=== PATIENT | male | born 1955 | race Caucasian/White ===

== ENCOUNTER 2017-09-19 10:21 | Observation (INO) | payer OTHER ==
[2017-09-19 10:56] LABS: Absolute Lymphocytes (CBC) 0.8 K/uL (0.7-4.9); Absolute Monocytes 0.8 K/uL (0.1-1.3); Absolute Neutrophil 4.1 K/uL (1.8-8.0); Basophils % 0.7 % (0-1.3); Eosinophils % 4.7 % (0-4.4); Hematocrit 43.7 % (39.6-49.0); Lymphocytes % 13.3 % (15.3-44.8); MCH 30.8 pg (27.0-35.0); MCV 93.6 fL (80-100); MPV 9.6 fL (7.6-11.3); Monocytes % 12.8 % (3.3-12.3); RBC Red Blood Cell Count 4.67 M/uL (4.33-5.43)
[2017-09-19] MEDS ORDERED: PROMETHAZINE 25 MG/ML VIAL ONE (10:56)
[2017-09-19] MEDS ORDERED: MEPERIDINE HCL 25 MG/0.5 ML ONE ×2 (10:56→11:55)
[2017-09-19] MEDS ORDERED: NA CHLORIDE 0.9% 1,000 ML ONE (10:56)
[2017-09-19 11:05] LABS: Bicarbonate 26 mEq/L (21-31); Glucose Level 196 mg/dL (65-120); Lipase 20 U/L (22-51); Potassium 3.9 mEq/L (3.6-5.0); Sodium Level 135 mEq/L (135-145)
[2017-09-19 11:11] LABS: ALT/SGPT 17 IU/L (10-60); AST/SGOT 26 IU/L (10-42); Albumin 4.1 g/dL (3.2-5.5); Alkaline Phosphatase 90 IU/L (42-121); BUN Blood Urea Nitrogen 21 mg/dL (6-20); Bilirubin Direct 0.2 mg/dL (0-0.2); Bilirubin Total 0.8 mg/dL (0.3-1.2); Protein, Total 7.7 g/dL (6.0-8.3)
--- NOTE | 2017-09-19 11:45 | RAD REPORT ---
EXAM DESCRIPTION: CT - Abdomen Pelvis W Contrast - 09/19/2017 11:33 am CLINICAL HISTORY: Abdominal pain/generalized abdominal pain for 1 week with diarrhea COMPARISON: April 2017 TECHNIQUE: Computed axial tomography of the abdomen pelvis was obtained. 100 cc Isovue-300 was admin istered intravenously. Oral contrast was not requested which limits evaluation of bowel. All CT scans are performed using dose optimization technique as appropriate and may include automated exposure control or mA/KV adjustment according to patient size. FINDINGS: The liver, spleen, pancreas, adrenal and kidneys appear unremarkable. The wall of the entire colon appears mildly thickened. The wall of the the terminal ileum is mildly t hickened. Small inguinal hernias contain fat Postsurgical changes involve the lumbar spine IMPRESSION: Mild pancolitis/enteritis
[2017-09-19] MEDS ORDERED: METRONIDAZOLE 500mg IVPB 500 MG/100 ML BAG IV ONE (11:56)
[2017-09-19] MEDS ORDERED: CIPROFLOXACIN 400mg IV 400 MG/200 ML BAG IV ONE (11:56)
--- NOTE | 2017-09-19 12:02 | ER ---
Nurse's Notes [facility] Name: Helder Zambrano Age: 62 yrs Sex: Male : 1955 Arrival Date: 09/19/2017 Time: 10:23 Bed 20 Private MD: Wallace Garcia E Diagnosis: Pancolitis Presentation: 09/19 10:29 Presenting complaint: Patient states: Diffuse abdominal pain 01/19 and diarrhea x 1 hb week. Transition of care: patient was not received from another setting of care. Onset of symptoms was September 12, 2017. Risk Assessment: Do you want to hurt yourself or someone else? Patient reports no desire to harm self or others. Initial Sepsis Screen: Does the patient meet any 2 criteria? No. Patient's initial sepsis screen is negative. Does the patient have a suspected source of infection? No. Patient's initial sepsis screen is negative. Care prior to arrival: Medication(s) given: Immodium at 0800 today. 10:29 Method Of Arrival: Ambulatory hb 10:29 Acuity: ALDEN 3 hb Historical: - Allergies: 10:35 No Known Allergies; hb - Home Meds: 10:35 ferrous sulfate 325 mg (65 mg iron) Oral TbEC [Active]; alprazolam 1 mg Oral TbDL 1 tab hb 3 times per day [Active]; atorvastatin 40 mg oral tab 1 tab nightly [Active]; losartan 50 mg oral tab 1 tab once daily [Active]; gemfibrozil 600 mg Oral tab 1 tab 2 times per day [Active]; omeprazole 40 mg Oral cpDR 1 cap once daily [Active]; - PMHx: 10:35 Anemia; Back pain; Hypertension; hb - PSHx: 10:35 Back; Neck; Carpal Tunnel Repair; Shoulder - Left; Appendectomy; hb - Immunization history:: Adult Immunizations up to date. - Social history:: Smoking status: Patient uses tobacco products, smokes one pack cigarettes per day. - Ebola Screening: : No symptoms or risks identified at this time. Screenin:08 Abuse screen: Denies threats or abuse. Nutritional screening: No deficits noted. em Tuberculosis screening: No symptoms or risk factors identified. Fall Risk None identified. Assessment: 10:55 General: Appears in no apparent distress. uncomfortable, Behavior is calm, cooperative. em Pain: Complains of pain in abdomen Pain currently is 10 out of 10 on a pain scale. Quality of pain is described as sharp, Pain began 1 week. Neuro: Level of Consciousness is awake, alert, obeys commands, Oriented to person, place, time, situation, Reports dizziness, Denies headache. Cardiovascular: Denies chest pain, Capillary refill < 3 seconds Patient's skin is warm and dry. Respiratory: Airway is patent Respiratory effort is even, unlabored, Respiratory pattern is regular, symmetrical. GI: Abdomen is round non-distended, Stools are reported to be diarrhea. Last BM was September 19, 2017. Bowel sounds present X 4 quads. Abd is soft X 4 quads Abdomen is tender to palpation X 4 quads. Reports diarrhea, nausea, Patient currently denies vomiting. : No signs and/or symptoms were reported regarding the genitourinary system. EENT: No signs and/or symptoms were reported regarding the EENT system. Derm: Skin is intact, Skin is pink, warm \\T\\ dry. Musculoskeletal: Range of motion: intact in all extremities. 11:00 Reassessment: Patient appears in no apparent distress at this time. I agree with above iw assessment by Nikko Rachel LVN. 11:44 Reassessment: Patient appears in no apparent distress at this time. Patient and/or em family updated on plan of care and expected duration. Pain level reassessed. Patient is alert, oriented x 3, equal unlabored respirations, skin warm/dry/pink. c/o pain, reports pain medication only worked for "15-20 minutes," MARCOS Banegas notified, new orders received. 12:10 Reassessment: Patient appears in no apparent distress at this time. Dr. Griffith at em bedside discussing POC. 12:30 Reassessment: Patient appears in no apparent distress at this time. Patient and/or em family updated on plan of care and expected duration. Pain level reassessed. awaiting room assignment. 13:39 Reassessment: Patient appears in no apparent distress at this time. Patient and/or em family updated on plan of care and expected duration. Pain level reassessed. Patient is alert, oriented x 3, equal unlabored respirations, skin warm/dry/pink. Patient denies pain at this time. Patient states symptoms have improved. Vital Signs: 10:31 BP 107 / 72; Pulse 94; Resp 16; Temp 98.5; Pulse Ox 100% on R/A; Weight 72.57 kg; hb Height 5 ft. 8 in. (172.72 cm); Pain 10/10; 11:44 BP 119 / 73; Pulse 87; Resp 16; Pulse Ox 98% on R/A; Pain 10/10; em 12:30 BP 123 / 79; Pulse 86; Resp 18; Pulse Ox 98% on R/A; em 13:40 BP 112 / 77; Pulse 92; Resp 18; Pulse Ox 100% on R/A; Pain 7/10; em 10:31 Body Mass Index 24.33 (72.57 kg, 172.72 cm) hb ED Course: 10:23 Patient arrived in ED. rg4 10:23 Wallace Garcia MD is Private Physician. rg4 10:31 Triage completed. hb 10:31 Arm band placed on left wrist. hb 10:36 Bassam Schultz PA is PHCP. jr8 10:36 Kristofer Byrne MD is Attending Physician. jr8 10:50 Nikko Rachel LVN is Primary Nurse. em 10:50 Basic Metabolic Panel Sent. ag 10:50 CBC with Diff Sent. ag 10:50 Creatinine for Radiology Sent. ag 10:50 Hepatic Function Sent. ag 10:50 Lipase Sent. ag 10:51 Inserted saline lock: 20 gauge in right antecubital area, using aseptic technique. ag Blood collected. 10:55 Basic Metabolic Panel Sent. ag 10:55 CBC with Diff Sent. ag 10:55 Creatinine for Radiology Sent. ag 10:55 Hepatic Function Sent. ag 10:55 Lipase Sent. ag 10:56 Initial lab(s) drawn, by co, sent to lab. ag 11:09 Patient has correct armband on for positive identification. Placed in gown. Bed in low em position. Call light in reach. Side rails up X2. Adult w/ patient. 11:29 CT completed. Patient moved to CT via stretcher. Patient moved back from CT. cw1 11:34 CT Abd/Pelvis - W/Contrast In Process Unspecified. EDMS 12:02 Magno Griffith DO is Hospitalizing Provider. jr8 13:46 No provider procedures requiring assistance completed. Patient admitted, IV remains in em place. Administered Medications: 11:02 Drug: NS 0.9% 1000 ml Route: IV; Rate: 100 ml/hr; Site: right antecubital; em 14:01 Follow up: IV Status: Infusion continued upon admission iw 11:03 Drug: Phenergan 12.5 mg Route: IVP; Site: right antecubital; iw 11:49 Follow up: Response: No adverse reaction; Nausea is decreased em 11:04 Drug: Demerol 25 mg Route: IVP; Site: right antecubital; iw 11:49 Follow up: Response: No adverse reaction em 12:08 Drug: Cipro 400 mg Volume: 200 ml; Route: IVPB; Infused Over: 60 mins; Site: right em antecubital; 13:38 Follow up: Response: No adverse reaction; IV Status: Completed infusion; IV Intake: em 200ml 12:08 Drug: Flagyl 500 mg Volume: 100 ml; Route: IVPB; Rate: 200 ml/hr; Infused Over: 30 em mins; Site: right antecubital; 13:38 Follow up: IV Status: Completed infusion; IV Intake: 200ml em 12:09 Drug: Demerol 25 mg Route: IVP; Site: right antecubital; em 13:37 Follow up: Response: No adverse reaction; Pain is decreased em Intake: 13:38 IV: 200ml; Total: 200ml. em 13:38 IV: 200ml; Total: 400ml. em Outcome: 12:02 Decision to Hospitalize by Provider. shirley 13:46 Admitted to Med/surg accompanied by lila, via wheelchair, room 204, with chart, Report em called to RHEA Wilks 13:46 Condition: good 13:46 Instructed on the need for admit, Demonstrated understanding of instructions. 14:00 Patient left the ED. Signatures: Dispatcher [employer] EDMS Nikko Rachel, OTOLARYNGOLOGY TEACHER OTOLARYNGOLOGY TEACHER em Radha Hall RN RN iw Woodley, Crystal cw1 Bassam Schultz PA PA jr8 aKthryn Dobson Heather, RN RN hb Garcia, Rubi rg4
--- NOTE | 2017-09-19 12:03 | EDPHYS ---
Physician Documentation [facility] Name: Helder Zambrano Age: 62 yrs Sex: Male : 1955 Arrival Date: 09/19/2017 Time: 10:23 Bed 20 Private MD: Wallace Garcia E ED Physician Kristofer Byrne HPI: 09/19 11:08 This 62 yrs old Male presents to ER via Ambulatory with complaints of jr8 Abdominal Pain. 11:08 The patient presents with abdominal pain that is diffuse. Onset: The symptoms/episode jr8 began/occurred acutely, 1 week(s) ago. The symptoms do not radiate. Associated signs and symptoms: Pertinent positives: diarrhea, nausea, Pertinent negatives: blood in stools, dysuria, fever, vomiting. The symptoms are described as crampy, stabbing. Modifying factors: The symptoms are alleviated by nothing, the symptoms are aggravated by food. Severity of pain: At its worst the pain was moderate in the emergency department the pain is unchanged. The patient has not experienced similar symptoms in the past. The patient has not recently seen a physician. Historical: - Allergies: 10:35 No Known Allergies; hb - Home Meds: 10:35 ferrous sulfate 325 mg (65 mg iron) Oral TbEC [Active]; alprazolam 1 mg Oral TbDL 1 tab hb 3 times per day [Active]; atorvastatin 40 mg oral tab 1 tab nightly [Active]; losartan 50 mg oral tab 1 tab once daily [Active]; gemfibrozil 600 mg Oral tab 1 tab 2 times per day [Active]; omeprazole 40 mg Oral cpDR 1 cap once daily [Active]; - PMHx: 10:35 Anemia; Back pain; Hypertension; hb - PSHx: 10:35 Back; Neck; Carpal Tunnel Repair; Shoulder - Left; Appendectomy; hb - Immunization history:: Adult Immunizations up to date. - Social history:: Smoking status: Patient uses tobacco products, smokes one pack cigarettes per day. - Ebola Screening: : No symptoms or risks identified at this time. ROS: 11:08 Eyes: Negative for injury, pain, redness, and discharge, ENT: Negative for injury, jr8 pain, and discharge, Neck: Negative for injury, pain, and swelling, Cardiovascular: Negative for chest pain, palpitations, and edema, Respiratory: Negative for shortness of breath, cough, wheezing, and pleuritic chest pain, Back: Negative for injury and pain, MS/Extremity: Negative for injury and deformity, Skin: Negative for injury, rash, and discoloration, Neuro: Negative for headache, weakness, numbness, tingling, and seizure. 11:08 Abdomen/GI: Positive for abdominal pain, nausea, diarrhea, abdominal cramps, Negative for vomiting, hematemesis, black/tarry stool, rectal pain, rectal bleeding, bowel incontinence, flatulence. Exam: 11:08 ENT: Nares patent. No nasal discharge, no septal abnormalities noted. Tympanic jr8 membranes are normal and external auditory canals are clear. Oropharynx with no redness, swelling, or masses, exudates, or evidence of obstruction, uvula midline. Mucous membranes moist. Cardiovascular: Regular rate and rhythm with a normal S1 and S2. No gallops, murmurs, or rubs. Normal PMI, no JVD. No pulse deficits. Respiratory: Lungs have equal breath sounds bilaterally, clear to auscultation and percussion. No rales, rhonchi or wheezes noted. No increased work of breathing, no retractions or nasal flaring. Back: No spinal tenderness. No costovertebral tenderness. Full range of motion. Skin: Warm, dry with normal turgor. Normal color with no rashes, no lesions, and no evidence of cellulitis. MS/ Extremity: Pulses equal, no cyanosis. Neurovascular intact. Full, normal range of motion. Neuro: Awake and alert, GCS 15, oriented to person, place, time, and situation. Cranial nerves II-XII grossly intact. Motor strength 5/5 in all extremities. Sensory grossly intact. Cerebellar exam normal. Normal gait. 11:08 Abdomen/GI: Inspection: abdomen appears normal, Bowel sounds: active, all quadrants, Palpation: soft, in all quadrants, moderate abdominal tenderness, in the abdomen diffusely, mass, is not appreciated, rebound tenderness, is not appreciated, voluntary guarding, is not appreciated, involuntary guarding, is not appreciated, no appreciated organomegaly, Indicators: McBurney's point is not tender, Davis's sign is negative, Rovsing's sign is negative, Liver: no appreciated palpable abnormalities, tenderness, is not appreciated. Vital Signs: 10:31 BP 107 / 72; Pulse 94; Resp 16; Temp 98.5; Pulse Ox 100% on R/A; Weight 72.57 kg; hb Height 5 ft. 8 in. (172.72 cm); Pain 10/10; 11:44 BP 119 / 73; Pulse 87; Resp 16; Pulse Ox 98% on R/A; Pain 10/10; em 12:30 BP 123 / 79; Pulse 86; Resp 18; Pulse Ox 98% on R/A; em 13:40 BP 112 / 77; Pulse 92; Resp 18; Pulse Ox 100% on R/A; Pain 7/10; em 10:31 Body Mass Index 24.33 (72.57 kg, 172.72 cm) hb MDM: 10:36 Patient medically screened. 8 12:01 Data reviewed: vital signs, nurses notes, lab test result(s), radiologic studies, CT jr8 scan, and as a result, I will admit patient. Data interpreted: Pulse oximetry: on room air is 98 %. Interpretation: normal. Counseling: I had a detailed discussion with the patient and/or guardian regarding: the historical points, exam findings, and any diagnostic results supporting the discharge/admit diagnosis, lab results, radiology results, the need for further work-up and treatment in the hospital. Physician consultation: Magno Griffith DO was called at 12:02, was contacted at 12:02, regarding admission, to the medical/surgical unit. patient's condition, and will see patient in ED. 09/19 10:37 Order name: Basic Metabolic Panel; Complete Time: 11:15 09/19 10:37 Order name: CBC with Diff; Complete Time: 11:03 09/19 10:37 Order name: Creatinine for Radiology; Complete Time: 11:07 09/19 10:37 Order name: Hepatic Function; Complete Time: 11:15 09/19 10:37 Order name: Lipase; Complete Time: 11:15 09/19 11:58 Order name: Stool Culture 09/19 11:08 Order name: CT Abd/Pelvis - W/Contrast; Complete Time: 11:48 09/19 11:58 Order name: Ova And Parasites 09/19 11:58 Order name: CDIFF 09/19 13:25 Order name: Urine Dipstick--Ancillary (enter results) 09/19 10:37 Order name: IV Saline Lock; Complete Time: 10:50 rust 09/19 10:37 Order name: Labs collected and sent; Complete Time: 10:50 8 09/19 10:37 Order name: Urine Dipstick-Ancillary (obtain specimen); Complete Time: 12:15 Administered Medications: 11:02 Drug: NS 0.9% 1000 ml Route: IV; Rate: 100 ml/hr; Site: right antecubital; em 14:01 Follow up: IV Status: Infusion continued upon admission iw 11:03 Drug: Phenergan 12.5 mg Route: IVP; Site: right antecubital; iw 11:49 Follow up: Response: No adverse reaction; Nausea is decreased em 11:04 Drug: Demerol 25 mg Route: IVP; Site: right antecubital; iw 11:49 Follow up: Response: No adverse reaction em 12:08 Drug: Cipro 400 mg Volume: 200 ml; Route: IVPB; Infused Over: 60 mins; Site: right em antecubital; 13:38 Follow up: Response: No adverse reaction; IV Status: Completed infusion; IV Intake: em 200ml 12:08 Drug: Flagyl 500 mg Volume: 100 ml; Route: IVPB; Rate: 200 ml/hr; Infused Over: 30 em mins; Site: right antecubital; 13:38 Follow up: IV Status: Completed infusion; IV Intake: 200ml em 12:09 Drug: Demerol 25 mg Route: IVP; Site: right antecubital; em 13:37 Follow up: Response: No adverse reaction; Pain is decreased em Disposition: 09/20 09:06 Co-signature as Attending Physician, Kristofer Byrne MD I agree with the assessment and jeevan plan of care. Disposition: 09/19/17 12:02 Hospitalization ordered by Magno Griffith for Observation. Preliminary diagnosis is Pancolitis. - Bed requested for Telemetry/MedSurg (observation). - Status is Observation. iw - Condition is Stable. - Problem is new. - Symptoms have improved. UTI on Admission? No Signatures: Dispatcher [employer] Kimi Sparks Corey, MD MD cha Munoz, Edgar, DEBURRER MACHINE DEBURRER MACHINE em Radha Hall RN RN iw aBssam Schultz PA PA jr8 Lima Escalante, RN RN Corrections: (The following items were deleted from the chart) 09/19 11:59 11:59 Occult Blood+PA.LAB.BRZ ordered. EDIL EDIL 12:18 12:02 Hospitalization Ordered by Magno Griffith DO for Inpatient Admission. Preliminary jr8 diagnosis is Pancolitis. Bed requested for Telemetry/MedSurg (Inpatient). Status is Inpatient Admission. Condition is Stable. Problem is new. Symptoms have improved. UTI on Admission? No. jr8 12:18 12:18 09/19/2017 12:02 [facility] jr8 Preliminary diagnosis is Pancolitis. Bed requested for Telemetry/MedSurg (Inpatient). Status is Observation. Condition is Stable. Problem is new. Symptoms have improved. UTI on Admission? No. jr8 13:16 12:18 09/19/2017 12:02 Hospitalization Ordered by [facility] for Observation. bd Preliminary diagnosis is Pancolitis. Bed requested for Operating Room. Status is Observation. Condition is Stable. Problem is new. Symptoms have improved. UTI on Admission? No. jr8 14:00 13:16 09/19/2017 12:02 Hospitalization Ordered by [facility] for Observation. iw Preliminary diagnosis is Pancolitis. Bed requested for Telemetry/MedSurg (observation). Status is Observation. Condition is Stable. Problem is new. Symptoms have improved. UTI on Admission? No. bd
[2017-09-19] MEDS ORDERED: ALBUTEROL 2.5 MG/3 ML NEB SOL NEB PRN (12:20)
[2017-09-19] MEDS ORDERED: ONDANSETRON 4 MG/2 ML VIAL IV PRN (12:20)
[2017-09-19] MEDS ORDERED: ACETAMINOPHEN 500 MG TAB PO PRN (12:20)
[2017-09-19] MEDS ORDERED: HYDROCODONE/APAP 7.5/325 MG TAB PO PRN (12:20)
[2017-09-19] MEDS ORDERED: FENTANYL CITR 100 MCG/2 ML IV PRN (12:20)
[2017-09-19] MEDS ORDERED: IPRATROPIUM BROM 0.5MG/2.5ML NEB PRN (12:20)
[2017-09-19] MEDS ORDERED: ALPRAZOLAM 0.5 MG TABLET PO PRN (12:20)
[2017-09-19] MEDS ORDERED: TRAMADOL HCL 50 MG TAB PO PRN (12:20)
[2017-09-19] MEDS ORDERED: HYDROCORTISONE 1 % CREAM 30GM TOP PRN (12:20)
--- NOTE | 2017-09-19 12:32 | P.HP ---
Certification for Inpatient Patient admitted to: Observation With expected LOS: <2 Midnights Patient will require the following post-hospital care: None Practitioner: I am a practitioner with admitting privileges, knowledge of patient current condition, hospital course, and medical plan of care. Services: Services provided to patient in accordance with Admission requirements found in Title 42 Section 412.3 of the Code of Federal Regulations Patient History Date of Service: 09/19/17 Primary Care Provider: Dr. Garcia(Lizeth Otero NP); Hematology-Dr. Tomlinson; GI-Dr. Joseph Reason for admission: Abdominal pain, diarrhea History of Present Illness: 62 yo CM presented to the ER with abdominal pain and diarrhea. He reports that this started about 8 days ago. The pain is diffuse and sharp. He reports diarrhea that is watery. He took some Imodium last night with some improvement. No melena or blood in the stool is noted. He is taking Iron for Iron def Anemia and sees Hematology. He also reports some nausea but no vomiting. He regularly eats just once daily. His intake has been low. He also mentions that he did take a round of antibiotics and a steroid pack about 10-14 days ago. He mentions that he has been suffering with irritation to the arms due to poison fermin. He got this about 2 weeks ago. It has slowly improved. He has seen GI in the past for colon polyps. His last EGD and colonoscopy about 2 year ago and it was normal. In the ER he was given IV pain medication. His CBC and CMP was stable. Lipase is normal. CT scan showed pancolitis. He will be admitted for observation. When I saw the patient, the pain was improved. He remains stable. He has HTN, Hyperlipidemia, GERD, Iron def anemia, Tobacco abuse and chronic back pain. Allergies No Known Allergies Allergy (Unverified 04/23/17 21:03) Home medications list reviewed: Yes - Past Medical/Surgical History Has patient received pneumonia vaccine in the past: No Diabetic: No -: HTN -: GERD -: Hyperlipidemia -: Chronic back pain -: Iron def Anemia -: Colon polyps -: Tobacco abuse -: Back surgery times 3 -: Appendectomy -: Throat surgery times 3 to remove polyp(benign) -: Knee surgery -: Left shoulder surgery -: Trigger finger surgery -: Carpal tunnel surgery Psychosocial/ Personal History: He is for 40 years. No children. He is disabled. - Family History Family History: Reviewed- Non-Contributory - Social History Smoking Status: Heavy Tobacco smoker (>10 cigarettes/day) Counseled patient to stop smoking for: less than 10 minutes Smoking therapy provided: Yes Patient receptive to therapy: Yes Alcohol use: Yes CD- Drugs: No Caffeine use: Yes Place of Residence: Home Review of Systems General: Weakness, As per HPI Eyes: Unremarkable ENT: Unremarkable Respiratory: Unremarkable Cardiovascular: Unremarkable Gastrointestinal: Nausea, Abdominal Pain, Diarrhea, As per HPI Genitourinary: Unremarkable Musculoskeletal: Back Pain, As per HPI Integumentary: Unremarkable Neurological: Unremarkable Lymphatics: Unremarkable Physical Examination - Physical Exam General: Alert, In no apparent distress, Oriented x3, Cooperative HEENT: Atraumatic, Normocephalic, PERRLA, Other (Dry mucous membranes. ) Neck: Supple, No Thyromegaly Respiratory: Clear to auscultation bilaterally, Normal air movement Cardiovascular: Normal pulses, Regular rate/rhythm Gastrointestinal: Normal bowel sounds, Soft and benign, Non-distended, No masses , No rebound, No guarding, Tenderness (Mild pain to the abdomen, diffuse) Musculoskeletal: No contractures, No erythema, No tenderness, No warmth Integumentary: No tenderness/swelling, No erythema, No warmth, No cyanosis Neurological: Normal speech, Normal strength at 5/5 x4 extr, Normal tone, Normal affect Lymphatics: No axilla or inguinal lymphadenopathy - Studies Laboratory Data (last 24 hrs) 09/19/17 10:40: Creatinine 0.80 09/19/17 10:40: WBC 5.9, Hgb 14.4, Hct 43.7, Plt Count 222 09/19/17 10:40: Sodium 135, Potassium 3.9, BUN 21 H, Creatinine 0.81, Glucose 196 H, Total Bilirubin 0.8, AST 26, ALT 17, Alkaline Phosphatase 90, Lipase 20 L Assessment and Plan - Problems (Diagnosis) (1) Pancolitis Current Visit: Yes Status: Acute Plan: CT scan shows pancolitis. Suspect c. dif. colitis. Will start IV fluids, Vancomycin 125 mg orally QID. Will provide medication for nausea and pain. Will start with GI soft as tolerated. Will add Lactobacillus. If much improved by tomorrow, then possible DC home. May need 1-2 days. C. Dif cultures pending. (2) Colitis due to Clostridium difficile Current Visit: Yes Status: Suspected Plan: As above (3) Abdominal pain Current Visit: Yes Status: Acute Plan: Secondary to above. Qualifiers: Abdominal location: generalized Qualified Code(s): R10.84 - Generalized abdominal pain (4) Diarrhea Current Visit: Yes Status: Acute Plan: Likely C. Dif colitis with recent antibiotic use. Continue as above Qualifiers: Diarrhea type: infectious Qualified Code(s): A09 - Infectious gastroenteritis and colitis, unspecified (5) HTN (hypertension) Current Visit: Yes Status: Chronic Plan: Continue with medication Qualifiers: Hypertension type: essential hypertension Qualified Code(s): I10 - Essential (primary) hypertension (6) Hyperlipidemia Current Visit: Yes Status: Chronic Plan: Continue with medication. Qualifiers: Hyperlipidemia type: unspecified Qualified Code(s): E78.5 - Hyperlipidemia , unspecified (7) Anemia Current Visit: Yes Status: Chronic Plan: Overall stable. Will monitor closely. Takes Iron daily. Sees Hematology as outpatient. Qualifiers: Anemia type: iron deficiency Iron deficiency anemia type: unspecified iron deficiency Qualified Code(s): D50.9 - Iron deficiency anemia, unspecified (8) Tobacco abuse Current Visit: Yes Status: Chronic Plan: Cessation addressed. 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 Will also provide steroid cream. (10) GERD (gastroesophageal reflux disease) Current Visit: Yes Status: Chronic Plan: Will provide Pepcid. Qualifiers: Esophagitis presence: esophagitis presence not specified Qualified Code(s) : K21.9 - Gastro-esophageal reflux disease without esophagitis (11) Chronic back pain Current Visit: Yes Status: Chronic Plan: Patient is disabled. Will provide medication. Qualifiers: Back pain location: low back pain Back pain laterality: unspecified Sciatica presence: without sciatica Qualified Code(s): M54.5 - Low back pain; G89.29 - Other chronic pain Discharge Plan: Home Plan to discharge in: 24 Hours - Advance Directives Does patient have a Living Will: No Does patient have a Durable POA for Healthcare: No - Code Status/Comfort Care Code Status Assessed: Yes Time Spent Managing Pts Care (In Minutes): 55
[2017-09-19] MEDS ORDERED: MORPHINE 4 MG/ML SYR IV PRN (12:48)
[2017-09-19] MEDS: PROMETHAZINE 25 MG/ML VIAL IV PRN (15:18)
[2017-09-19] MEDS: NA CHLORIDE 0.9% 1,000 ML IV SCH ×2 (15:19→21:19)
[2017-09-19] MEDS: MEPERIDINE HCL 25 MG/0.5 ML IV PRN ×2 (15:19→21:11)
[2017-09-19] MEDS: LACTOBACILLUS/ACIDOPHILUS TAB PO SCH ×2 (15:19→21:03)
[2017-09-19] MEDS ORDERED: PNEUMOCOCCAL VACCINE 0.5 ML IMVAC ONE (17:00)
[2017-09-19] MEDS ORDERED: ENOXAPARIN 40 MG/0.4 ML SQ SCH (17:00)
[2017-09-19 17:13] LABS: Urine Appearance CLEAR; Urine Bilirubin NEGATIVE (NEG); Urine Blood NEGATIVE (NEG); Urine Color YELLOW; Urine Glucose NEGATIVE (NEG); Urine Protein NEGATIVE (NEG); Urine Specific Gravity >=1.030 (1.005-1.030); Urine Urobilinogen 0.2 mg/dL (0.2-1.0)
[2017-09-19 17:16] LABS: Urine Microscopic Reflex NO UMIC
[2017-09-19] MEDS: VANCOMYCIN ORAL SOLN 250 MG/5 ML OSYR PO SCH (17:40)
[2017-09-19] MEDS: ARFORMOTEROL TARTRATE 15 MCG/2 ML VIAL.NEB NEB SCH (19:49)
[2017-09-19] MEDS ORDERED: ATORVASTATIN 40 MG TAB PO SCH (21:00)
[2017-09-19] MEDS: GEMFIBROZIL 600 MG TAB PO SCH (21:03)
[2017-09-19] MEDS: FAMOTIDINE 20 MG TAB PO SCH (21:03)
[2017-09-20] MEDS: VANCOMYCIN ORAL SOLN 250 MG/5 ML OSYR PO SCH ×3 (00:08→12:07)
[2017-09-20] MEDS: MEPERIDINE HCL 25 MG/0.5 ML IV PRN ×2 (04:10→10:18)
[2017-09-20] MEDS: PROMETHAZINE 25 MG/ML VIAL IV PRN ×2 (04:12→10:17)
[2017-09-20] MEDS: NA CHLORIDE 0.9% 1,000 ML IV SCH (05:14)
[2017-09-20 05:21] LABS: Absolute Lymphocytes (CBC) 1.2 K/uL (0.7-4.9); Absolute Monocytes 0.9 K/uL (0.1-1.3); Absolute Neutrophil 2.4 K/uL (1.8-8.0); Basophils % 0.9 % (0-1.3); Eosinophils % 10.6 % (0-4.4); Lymphocytes % 22.8 % (15.3-44.8); MCH 31.1 pg (27.0-35.0); MCV 92.2 fL (80-100); MPV 9.2 fL (7.6-11.3); Monocytes % 18.6 % (3.3-12.3); RBC Red Blood Cell Count 4.02 M/uL (4.33-5.43)
[2017-09-20 06:11] LABS: BUN Blood Urea Nitrogen 11 mg/dL (6-20); Bicarbonate 26 mEq/L (21-31); Glucose Level 108 mg/dL (65-120); Magnesium 1.6 mg/dL (1.8-2.5); Potassium 3.7 mEq/L (3.6-5.0); Sodium Level 137 mEq/L (135-145); Thyroid Stimulating Hormone 3.02 uIU/mL (0.34-5.60)
[2017-09-20 06:17] LABS: Blood Morphology Comment NOT SEEN (NOT SEEN); Platelet Estimate ADEQ
[2017-09-20] MEDS ORDERED: Levofloxacin500mg IV 500 MG/100 ML BAG IV SCH (07:00)
[2017-09-20] MEDS ORDERED: MAGNESIUM SULFATE 1 gm IVPB 1 GM/100 ML BAG IV ONE (07:00)
[2017-09-20] MEDS ORDERED: POTASSIUM 25 MEQ EFFERV TAB PO ONE (07:00)
[2017-09-20] MEDS: METRONIDAZOLE 500mg IVPB 500 MG/100 ML BAG IV SCH ×2 (07:32→12:07)
[2017-09-20] MEDS: ARFORMOTEROL TARTRATE 15 MCG/2 ML VIAL.NEB NEB SCH (07:38)
[2017-09-20] MEDS ORDERED: CETIRIZINE HCL 5 MG TABLET PO SCH (09:00)
[2017-09-20] MEDS ORDERED: FERROUS SULFATE 325 MG TAB PO SCH (09:00)
[2017-09-20] MEDS ORDERED: LOSARTAN POTASSIUM 50 MG TABLET PO SCH (09:00)
[2017-09-20] MEDS: LACTOBACILLUS/ACIDOPHILUS TAB PO SCH ×2 (09:31→14:08)
[2017-09-20] MEDS: FAMOTIDINE 20 MG TAB PO SCH (09:31)
[2017-09-20] MEDS: GEMFIBROZIL 600 MG TAB PO SCH (09:31)
--- NOTE | 2017-09-20 14:44 | PN ---
Date of Progress Note: 09/20/2017 Subjective: The patient is seen and examined. Chart reviewed and case discussed with RN. The patie nt states he is still having multiple episodes of diarrhea and has pain throughout his abdomen. No n ausea or vomiting. He is not able to really keep anything p.o. Review of Systems: Negative except as above. Medications: Reviewed. Physical Examination: Vital Signs: Temperature 97.4, heart rate 71, blood pressure 124/71, respirations 16, O2 98% on room air. General: Awake, alert, oriented x3, in some mild distress, ill-appearing male. CV: S1, S2. No murmurs. Regular rate and rhythm. Peripheral pulses present. Respiratory: Clear to auscultation bilaterally. No wheezing. No stridor. No use of accessory musc les. Gastrointestinal: Abdomen is soft. Mild tenderness to palpation. Nondistended. Positive bowel star nds. No guarding or rigidity. Extremities: No clubbing, cyanosis, edema. Neuro: Nonfocal. Laboratory Data: Sodium 137, potassium 3.7, chloride 105, CO2 26, BUN 11, creatinine 0.61, glucose 1 08, calcium 8.7, magnesium 1.6. TSH 3.02. WBC 5.1, H and H 12.5 and 37, platelets 201, neutrophils 47%, bands 34. UA is negative. C diff assay pending. Assessment And Plan: A 62-year-old male with: 1.Pancolitis may be secondary to Clostridium difficile. The patient was recently on antibiotics. W e will continue with vancomycin 125 mg p.o. weekly q.i.d. for prophylactic treatment and follow up Clostridium difficile culture. Continue probiotics. 2.Likely clostridium difficile colitis. CT scan shows pancolitis. The patient is still having diar luc. Continue p.o. vancomycin and probiotics. 3.Acute generalized abdominal pain secondary to above. 4.Diarrhea likely secondary to above. Continue IV fluids and rehydration. 5.Hypertension, essential, stable. 6.Mixed hyperlipidemia. 7.Anemia, on iron. We will continue. 8.Nicotine dependence. Cigarette smoking counseled. 9.The patient with poison fermin dermatitis. Continue symptomatic treatment with Zyrtec, Pepcid, and s teroid cream. 10.Gastroesophageal reflux disease without esophagitis. Continue PPI. 11.Chronic back pain without sciatica, mid lumbar spine. 12.Gastrointestinal and deep venous thrombosis prophylaxis with Lovenox and PPI. Plan: Follow up on C. diff results. May be able to be discharged in the next 24 hours if continues to improve. /KAYLEE Voice ID: [id number] Report ID: [id number]
--- NOTE | 2017-09-20 15:29 | P.DS ---
Admission Date: 09/19/17 Discharge Date: 09/21/17 Primary Care Provider: Dr. Garcia(Lizeth Otero NP); Hematology-Dr. Tomlinson; GI-Dr. Joseph Disposition: ROUTINE DISCHARGE Discharge Condition: FAIR Reason for Admission: Abdominal pain, diarrhea - Problems (1) Abdominal pain Onset Date: 09/20/17 Status: Acute Qualifiers: Abdominal location: generalized Qualified Code(s): R10.84 - Generalized abdominal pain (2) Diarrhea Onset Date: 09/20/17 Status: Acute Qualifiers: Diarrhea type: infectious Qualified Code(s): A09 - Infectious gastroenteritis and colitis, unspecified (3) Pancolitis Onset Date: 09/20/17 Status: Acute (4) Anemia Onset Date: 09/20/17 Status: Chronic Qualifiers: Anemia type: iron deficiency Iron deficiency anemia type: unspecified iron deficiency Qualified Code(s): D50.9 - Iron deficiency anemia, unspecified (5) Chronic back pain Onset Date: 09/20/17 Status: Chronic Qualifiers: Back pain location: low back pain Back pain laterality: unspecified Sciatica presence: without sciatica Qualified Code(s): M54.5 - Low back pain; G89.29 - Other chronic pain (6) GERD (gastroesophageal reflux disease) Onset Date: 09/20/17 Status: Chronic Qualifiers: Esophagitis presence: esophagitis presence not specified Qualified Code(s) : K21.9 - Gastro-esophageal reflux disease without esophagitis (7) HTN (hypertension) Onset Date: 09/20/17 Status: Chronic Qualifiers: Hypertension type: essential hypertension Qualified Code(s): I10 - Essential (primary) hypertension (8) Hyperlipidemia Onset Date: 09/20/17 Status: Chronic Qualifiers: Hyperlipidemia type: unspecified Qualified Code(s): E78.5 - Hyperlipidemia , unspecified (9) Poison fermin dermatitis Onset Date: 09/20/17 Status: Chronic (10) Tobacco abuse Onset Date: 09/20/17 Status: Chronic Brief History of Present Illness: From H and P 62 yo CM presented to the ER with abdominal pain and diarrhea. He reports that this started about 8 days ago. The pain is diffuse and sharp. He reports diarrhea that is watery. He took some Imodium last night with some improvement. No melena or blood in the stool is noted. He is taking Iron for Iron def Anemia and sees Hematology. He also reports some nausea but no vomiting. He regularly eats just once daily. His intake has been low. He also mentions that he did take a round of antibiotics and a steroid pack about 10-14 days ago. He mentions that he has been suffering with irritation to the arms due to poison fermin. He got this about 2 weeks ago. It has slowly improved. He has seen GI in the past for colon polyps. His last EGD and colonoscopy about 2 year ago and it was normal. In the ER he was given IV pain medication. His CBC and CMP was stable. Lipase is normal. CT scan showed pancolitis. He will be admitted for observation. He has HTN, Hyperlipidemia, GERD, Iron def anemia, Tobacco abuse and chronic back pain. Hospital Course: Patient is a 62-year-old male who came into the hospital with abdominal pain and diarrhea. Patient was found to have phillips colitis on CT scan. Patient was started on IV antibiotics. Presumptively being treated for C. diff colitis. C. diff testing however came back negative. Patient was started on IV fluids and rehydrated. The patient's condition improved. He did not complain of any pain. He had no further nausea or vomiting. He was able to tolerate his diet. Still having some diarrhea but consistency was improving. Patient was adamant regarding going home. I explained to him that he does have some bandemia which may be a sign of of further infection. However patient is afebrile his tolerating diet diarrhea is improving he has cut follow up and will follow instructions upon discharge to return to the ER for worsening condition. Patient instructed to keep well hydrated and to monitor for signs of dehydration. Patient was then discharged home in a stable condition Vital Signs/Physical Exam: Temp Pulse Resp BP Pulse Ox 96.9 F 75 16 114/61 98 09/20/17 12:00 09/20/17 12:00 09/20/17 12:00 09/20/17 12:00 09/20/17 12:00 Other Physical/Emotional Findings: PLEASE SEE PROGRESS NOTE DICTATED ON THE DAY OF DISCHARGE FOR PHYSICAL EXAM FINDINGS Laboratory Data at Discharge: WBC 5.1 K/uL (4.3-10.9) 09/20/17 04:52 Hgb 12.5 g/dL (13.6-17.9) L 09/20/17 04:52 Hct 37.0 % (39.6-49.0) L D 09/20/17 04:52 Plt Count 201 K/uL (152-406) 09/20/17 04:52 Sodium 137 mEq/L (135-145) 09/20/17 04:52 Potassium 3.7 mEq/L (3.6-5.0) 09/20/17 04:52 BUN 11 mg/dL (6-20) 09/20/17 04:52 Creatinine 0.61 mg/dL (0.61-1.24) 09/20/17 04:52 Glucose 108 mg/dL (65-120) 09/20/17 04:52 Magnesium 1.6 mg/dL (1.8-2.5) L 09/20/17 04:52 Total Bilirubin 0.8 mg/dL (0.3-1.2) 09/19/17 10:40 AST 26 IU/L (10-42) 09/19/17 10:40 ALT 17 IU/L (10-60) 09/19/17 10:40 Alkaline Phosphatase 90 IU/L (42-121) 09/19/17 10:40 Lipase 20 U/L (22-51) L 09/19/17 10:40 Home Medications: ALPRAZolam [Alprazolam] 1 mg PO TID 09/19/17 Atorvastatin Calcium [Lipitor] 40 mg PO BEDTIME 09/19/17 Ferrous Sulfate [Ferrous Sulfate*] 1 tab PO DAILY 09/19/17 Gemfibrozil [Lopid*] 600 mg PO BID 09/19/17 Losartan Potassium [Cozaar] 50 mg PO DAILY 09/19/17 Omeprazole [Prilosec] 40 mg PO BID 09/19/17 Cetirizine HCl [Zyrtec*] 10 mg PO DAILY #30 tablet 09/20/17 Famotidine [Pepcid*] 20 mg PO BID #30 tab 09/20/17 Hydrocortisone Cream [Hydrocortisone 1% Cream*] 1 appl TOP TIDP PRN #1 tube 02/27 metroNIDAZOLE [Flagyl] 500 mg PO Q8H #30 tablet 09/20/17 New Medications: Cetirizine HCl [Zyrtec*] 10 mg PO DAILY #30 tablet Famotidine [Pepcid*] 20 mg PO BID #30 tab Hydrocortisone Cream [Hydrocortisone 1% Cream*] 1 appl TOP TIDP PRN #1 tube PRN Reason: Itching metroNIDAZOLE [Flagyl] 500 mg PO Q8H #30 tablet Patient Discharge Instructions: Follow up with primary care physician in 2-3 days. Return to ER for worsening condition Diet: Honor Activity: Ad patricia Time spent managing pt's care (in minutes): 35
== END 2017-09-20 16:43 | disposition home or self-care (01) ==
LOC: ER 10:21 → ERHOLD 12:06 → INTOOBSV 12:06 → 2ND 13:45
PROVIDERS: ADMIT Family Medicine; ATTEND Family Medicine
DX: K51.00 Ulcerative (chronic) pancolitis without complications (principal); L23.7 Allergic contact dermatitis due to plants, except food; D64.9 Anemia, unspecified; M54.9 Dorsalgia, unspecified; K21.9 Gastro-esophageal reflux disease without esophagitis; I10 Essential (primary) hypertension; E78.5 Hyperlipidemia, unspecified; F17.210 Nicotine dependence, cigarettes, uncomplicated
CPT/HCPCS: 36415; 74177; 80048 ×2; 80076; 81003; 83690; 83735; 84145; 84443; 85025 ×2; 87045; 87046; 87177; 87209; 87493; 96361; 96365; 96368; 96375; 99285; J0744; J1650; J2175 ×6; J2550 ×4; J3475; J7030 ×3; J7605 ×2; Q9967

== ENCOUNTER 2019-02-04 12:36 | Emergency (ER) | payer OTHER ==
[2019-02-04] MEDS ORDERED: IPRATROPIUM BROM 0.5MG/2.5ML ONE (12:55)
[2019-02-04] MEDS ORDERED: ALBUTEROL 2.5 MG/3 ML NEB SOL ONE (12:55)
[2019-02-04] MEDS ORDERED: predniSONE 20 MG TAB ONE (12:56)
[2019-02-04] MEDS ORDERED: MORPHINE 4 MG/ML SYR ONE (13:31)
[2019-02-04] MEDS ORDERED: ONDANSETRON 4 MG/2 ML VIAL ONE (13:31)
[2019-02-04 13:35] LABS: Basophils % 1.1 % (0-1.3); Hematocrit 41.4 % (39.6-49.0); Lymphocytes % 28.1 % (15.3-44.8); RBC Red Blood Cell Count 4.35 M/uL (4.33-5.43)
[2019-02-04 13:36] LABS: Protime INR 0.89
[2019-02-04 13:45] LABS: ALT/SGPT 26 U/L (12-78); AST/SGOT 27 U/L (15-37); Albumin 4.2 g/dL (3.4-5.0); Alkaline Phosphatase 141 U/L (45-117); BUN Blood Urea Nitrogen 18 mg/dL (7-18); Bicarbonate 30 mmol/L (21-32); Bilirubin Direct < 0.1 mg/dL (0-0.2); Bilirubin Total 0.3 mg/dL (0.2-1.0); Glucose Level 121 mg/dL (74-106); Magnesium 1.9 mg/dL (1.8-2.4); NT PRO-BNP 27 pg/mL (<125); Potassium 4.2 mmol/L (3.5-5.1); Protein, Total 7.4 g/dL (6.4-8.2); Sodium Level 144 mmol/L (136-145); Troponin (Emerg Dept Use Only) < 0.02 ng/mL (0.0-0.045)
--- NOTE | 2019-02-04 14:17 | EDPHYS ---
Physician Documentation [facility] Name: Helder Zambrano Age: 63 yrs Sex: Male : 1955 Arrival Date: 02/04/2019 Time: 12:37 Bed 15 Private MD: Wallace Garcia E ED Physician Murali Hodges HPI: 02/04 12:53 This 63 yrs old Male presents to ER via Wheelchair with complaints of Chest pm1 Pain, Dizziness, Breathing Difficulty. 12:53 The patient or guardian reports chest pain that is located primarily in the mid-sternal pm1 area. Onset: 3-4 weeks ago. The pain does not radiate. Associated signs and symptoms: Pertinent positives: cough, dizziness, shortness of breath, Pertinent negatives: abdominal pain, nausea, vomiting. The chest pain is described as sharp. Duration: The patient or guardian reports multiple episodes, that have now resolved. Modifying factors: The symptoms are alleviated by nothing. the symptoms are aggravated by cough. Severity of pain: in the emergency department the pain is a 0 / 10. The patient has been recently seen by a physician: the patient's primary care provider, yesterday, with similar presenting complaints. Patient has not used his rescue inhaler or inhaled steroid for 1 month because insurance company is no longer covering the medications. Historical: - Allergies: 12:42 No Known Allergies; sv - PMHx: 12:42 Anemia; Back pain; Hypertension; sv - PSHx: 12:42 Back; Neck; Carpal Tunnel Repair; Shoulder - Left; Appendectomy; sv - Immunization history:: Adult Immunizations up to date. - Social history:: Smoking status: Patient/guardian denies using tobacco. - Ebola Screening: : Patient negative for fever greater than or equal to 101.5 degrees Fahrenheit, and additional compatible Ebola Virus Disease symptoms Patient denies exposure to infectious person Patient denies travel to an Ebola-affected area in the 21 days before illness onset No symptoms or risks identified at this time. ROS: 12:53 Constitutional: Negative for fever, chills, and weight loss, Eyes: Negative for injury, pm1 pain, redness, and discharge, ENT: Negative for injury, pain, and discharge, Neck: Negative for injury, pain, and swelling, Abdomen/GI: Negative for abdominal pain, nausea, vomiting, diarrhea, and constipation, Back: Negative for injury and pain. 12:53 MS/Extremity: Negative for injury and deformity, Skin: Negative for injury, rash, and discoloration. 12:53 Neuro: Negative for headache, weakness, numbness, tingling, and seizure. 12:53 Cardiovascular: Positive for chest pain, Negative for edema, orthopnea, palpitations. 12:53 Respiratory: Positive for cough, shortness of breath. Exam: 12:53 Constitutional: This is a well developed, well nourished patient who is awake, alert, pm1 and in no acute distress. Head/Face: Normocephalic, atraumatic. Neck: Trachea midline, no thyromegaly or masses palpated, and no cervical lymphadenopathy. Supple, full range of motion without nuchal rigidity, or vertebral point tenderness. No Meningismus. Chest/axilla: Normal chest wall appearance and motion. Nontender with no deformity. No lesions are appreciated. Cardiovascular: Regular rate and rhythm with a normal S1 and S2. No gallops, murmurs, or rubs. Normal PMI, no JVD. No pulse deficits. Abdomen/GI: Soft, non-tender, with normal bowel sounds. No distension or tympany. No guarding or rebound. No evidence of tenderness throughout. Back: No spinal tenderness. No costovertebral tenderness. Full range of motion. Skin: Warm, dry with normal turgor. Normal color with no rashes, no lesions, and no evidence of cellulitis. 12:53 MS/ Extremity: Pulses equal, no cyanosis. Neurovascular intact. Full, normal range of motion. 12:53 Respiratory: the patient does not display signs of respiratory distress, Respirations: normal, Breath sounds: are clear throughout, no bronchial sounds, no decreased breath sounds, no rales, rhonchi, no stridor, no wheezing. 12:53 Neuro: Orientation: is normal, Motor: is normal, moves all fours, Sensation: is normal, no obvious gross deficits. Vital Signs: 12:42 BP 182 / 119; Pulse 69; Resp 18; Temp 97.8; Pulse Ox 98% ; Weight 80.29 kg; Height 5 sv ft. 7 in. (170.18 cm); 13:13 BP 162 / 86; Pulse 72; Resp 20; Pulse Ox 99% on R/A; Pain 7/10; em 14:13 BP 133 / 61; Pulse 82; Resp 18; Pulse Ox 99% on R/A; Pain 3/10; em 12:42 Body Mass Index 27.72 (80.29 kg, 170.18 cm) sv MDM: 12:45 Patient medically screened. pm1 14:15 Data reviewed: vital signs. Data interpreted: Pulse oximetry: on room air is 99 %. pm1 Interpretation: normal. Counseling: I had a detailed discussion with the patient and/or guardian regarding: the historical points, exam findings, and any diagnostic results supporting the discharge/admit diagnosis, lab results, radiology results, the need for outpatient follow up, to return to the emergency department if symptoms worsen or persist or if there are any questions or concerns that arise at home. 02/04 12:53 Order name: Basic Metabolic Panel pm1 02/04 12:53 Order name: CBC with Diff pm1 02/04 12:53 Order name: LFT's; Complete Time: 14:15 pm1 02/04 12:53 Order name: Magnesium; Complete Time: 14:15 pm1 02/04 12:53 Order name: NT PRO-BNP; Complete Time: 14:15 pm1 02/04 12:53 Order name: PT-INR; Complete Time: 13:40 pm1 02/04 12:53 Order name: Troponin (emerg Dept Use Only); Complete Time: 14:15 pm1 02/04 12:53 Order name: XRAY Chest (1 view) pm1 02/04 12:53 Order name: ETOH Level; Complete Time: 14:15 pm1 02/04 12:54 Order name: Basic Metabolic Panel; Complete Time: 14:15 EDMS 02/04 12:54 Order name: CBC with Automated Diff; Complete Time: 13:40 EDMS 02/04 12:53 Order name: EKG; Complete Time: 12:54 pm1 02/04 12:53 Order name: Cardiac monitoring; Complete Time: 13:03 pm1 02/04 12:53 Order name: EKG - Nurse/Tech; Complete Time: 13:04 pm1 02/04 12:53 Order name: IV Saline Lock; Complete Time: 13:18 pm1 02/04 12:53 Order name: Labs collected and sent; Complete Time: 13:04 pm1 02/04 12:53 Order name: O2 Per Protocol; Complete Time: 13:04 pm1 02/04 12:53 Order name: O2 Sat Monitoring; Complete Time: 13:04 pm1 Administered Medications: 13:00 Drug: Albuterol - atroVENT (3:1) (2.5 mg - 0.5 mg) 3 ml Route: Nebulizer; em 13:32 Follow up: Response: No adverse reaction; Marked relief of symptoms em 13:00 Drug: predniSONE 60 mg Route: PO; em 13:32 Follow up: Response: No adverse reaction em 13:35 Drug: morphine 4 mg Route: IVP; Site: left antecubital; aa5 14:10 Follow up: Response: No adverse reaction; Marked relief of symptoms; Pain is decreased em 13:35 Drug: Zofran 4 mg Route: IVP; Site: left antecubital; aa5 14:10 Follow up: Response: No adverse reaction em Disposition: 15:14 Co-signature as Attending Physician, Murali Hodges MD. rn Disposition: 02/04/19 14:16 Discharged to Home. Impression: Chronic obstructive pulmonary disease, unspecified. - Condition is Stable. - Discharge Instructions: Chronic Obstructive Pulmonary Disease, How to Use an Inhaler. - Prescriptions for Prednisone 20 mg Oral Tablet - take 3 tablet by ORAL route once daily for 5 days; 15 tablet. Albuterol Sulfate 90 mcg/actuation - inhale 1-2 puff by INHALATION route every 4-6 hours; 1 Inhaler. Guaifenesin AC 10- 100 mg/5 mL Oral Liquid - take 10 milliliter by ORAL route every 4 hours As needed; 240 milliliter. Advair Diskus 500- 50 mcg/Dose Inhalation Disk with Device - inhale 1 puff by INHALATION route every 12 hours; 1 packet. - Medication Reconciliation Form, Thank You Letter, Antibiotic Education, Prescription Opioid Use form. - Follow up: Emergency Department; When: As needed; Reason: Worsening of condition. Follow up: Private Physician; When: 2 - 3 days; Reason: Recheck today's complaints, Continuance of care, Re-evaluation by your physician. - Problem is new. - Symptoms have improved. Signatures: Dispatcher [employer] Reina Stewart RN RN sv Munoz, Edgar, TYPER TYPER Murali Glass MD MD rn Calderon, Audri, RN RN aa5 Orion Ravi NP PROCESSING SUPERVISOR pm1 Corrections: (The following items were deleted from the chart) 14:42 14:16 02/04/2019 14:16 Discharged to Home. Impression: Chronic obstructive pulmonary em disease, unspecified. Condition is Stable. Forms are Medication Reconciliation Form, Thank You Letter, Antibiotic Education, Prescription Opioid Use. Follow up: Emergency Department; When: As needed; Reason: Worsening of condition. Follow up: Private Physician; When: 2 - 3 days; Reason: Recheck today's complaints, Continuance of care, Re-evaluation by your physician. Problem is new. Symptoms have improved. pm1
--- NOTE | 2019-02-04 14:17 | ER ---
Nurse's Notes [facility] Name: Helder Zambrano Age: 63 yrs Sex: Male : 1955 Arrival Date: 02/04/2019 Time: 12:37 Bed 15 Private MD: Wallace Garcia E Diagnosis: Chronic obstructive pulmonary disease, unspecified Presentation: 02/04 12:40 Presenting complaint: Patient states: left sided chest pain that radiates to the back x sv 2 weeks, SOB that has progressively increased. Transition of care: patient was not received from another setting of care. Onset of symptoms was January 2019. Care prior to arrival: None. 12:40 Method Of Arrival: Wheelchair sv 12:40 Acuity: ALDEN 2 sv 12:45 Risk Assessment: Do you want to hurt yourself or someone else? Patient reports no em desire to harm self or others. Initial Sepsis Screen: Does the patient meet any 2 criteria? No. Patient's initial sepsis screen is negative. Does the patient have a suspected source of infection? Yes: Productive cough/pneumonia. Historical: - Allergies: 12:42 No Known Allergies; sv - PMHx: 12:42 Anemia; Back pain; Hypertension; sv - PSHx: 12:42 Back; Neck; Carpal Tunnel Repair; Shoulder - Left; Appendectomy; sv - Immunization history:: Adult Immunizations up to date. - Social history:: Smoking status: Patient/guardian denies using tobacco. - Ebola Screening: : Patient negative for fever greater than or equal to 101.5 degrees Fahrenheit, and additional compatible Ebola Virus Disease symptoms Patient denies exposure to infectious person Patient denies travel to an Ebola-affected area in the 21 days before illness onset No symptoms or risks identified at this time. Screenin:45 Abuse screen: Denies threats or abuse. Nutritional screening: No deficits noted. em Tuberculosis screening: No symptoms or risk factors identified. Fall Risk None identified. Assessment: 12:45 General: Appears in no apparent distress. comfortable, Behavior is calm, cooperative, em Denies fever. Pain: Complains of pain in anterior aspect of left upper chest and left breast Pain does not radiate. Pain currently is 7 out of 10 on a pain scale. Pain began 2 weeks ago. Neuro: Level of Consciousness is awake, alert, obeys commands, Oriented to person, place, time, situation, Appropriate for age. Cardiovascular: Reports chest pain, shortness of breath, Heart tones S1 S2 present Capillary refill < 3 seconds Patient's skin is warm and dry. Rhythm is sinus rhythm. Respiratory: Airway is patent Respiratory effort is even, unlabored, Respiratory pattern is regular, symmetrical, Breath sounds are diminished bilaterally. GI: Abdomen is round Patient currently denies nausea, vomiting. Derm: Skin is intact, is healthy with good turgor, Skin is pink, warm \T\ dry. Musculoskeletal: Capillary refill < 3 seconds, Range of motion: intact in all extremities. 12:45 Reassessment: I agree with assessment completed by Nikko Rachel LVN . aa5 13:45 Reassessment: Patient appears in no apparent distress at this time. Patient and/or em family updated on plan of care and expected duration. Pain level reassessed. Patient is alert, oriented x 3, equal unlabored respirations, skin warm/dry/pink. Patient states feeling better. Patient states symptoms have improved. 14:42 Reassessment: Patient appears in no apparent distress at this time. Patient and/or em family updated on plan of care and expected duration. Pain level reassessed. Patient is alert, oriented x 3, equal unlabored respirations, skin warm/dry/pink. rates pain 3/10 Patient states feeling better. Patient states symptoms have improved. Vital Signs: 12:42 BP 182 / 119; Pulse 69; Resp 18; Temp 97.8; Pulse Ox 98% ; Weight 80.29 kg; Height 5 sv ft. 7 in. (170.18 cm); 13:13 BP 162 / 86; Pulse 72; Resp 20; Pulse Ox 99% on R/A; Pain 7/10; em 14:13 BP 133 / 61; Pulse 82; Resp 18; Pulse Ox 99% on R/A; Pain 3/10; em 12:42 Body Mass Index 27.72 (80.29 kg, 170.18 cm) sv ED Course: 12:37 Patient arrived in ED. ag5 12:38 Wallace Garcia MD is Private Physician. ag5 12:42 Triage completed. sv 12:42 Arm band placed on. sv 12:44 Nikko Rachel LVN is Primary Nurse. em 12:45 Murali Hodges MD is Attending Physician. rn 12:45 Orion Ravi [facility]. pm1 12:45 Murali Hodges MD is Attending Physician. pm1 12:45 Patient has correct armband on for positive identification. Placed in gown. Bed in low em position. Call light in reach. Side rails up X 1. Adult w/ patient. monitor car operator on. Pulse ox on. NIBP on. 12:49 EKG done, by ED staff, reviewed by Orion Ravi NP. Patient maintains SpO2 em saturation greater than 95% on room air. 13:10 Initial lab(s) drawn, by me, sent to lab. Inserted saline lock: 22 gauge in left em antecubital area, using aseptic technique. Blood collected. 13:41 XRAY Chest (1 view) In Process Unspecified. EDMS 14:41 No provider procedures requiring assistance completed. IV discontinued, intact, em bleeding controlled, No redness/swelling at site. Pressure dressing applied. Administered Medications: 13:00 Drug: Albuterol - atroVENT (3:1) (2.5 mg - 0.5 mg) 3 ml Route: Nebulizer; em 13:32 Follow up: Response: No adverse reaction; Marked relief of symptoms em 13:00 Drug: predniSONE 60 mg Route: PO; em 13:32 Follow up: Response: No adverse reaction em 13:35 Drug: morphine 4 mg Route: IVP; Site: left antecubital; aa5 14:10 Follow up: Response: No adverse reaction; Marked relief of symptoms; Pain is decreased em 13:35 Drug: Zofran 4 mg Route: IVP; Site: left antecubital; aa5 14:10 Follow up: Response: No adverse reaction em Outcome: 14:16 Discharge ordered by . pm1 14:41 Discharged to home ambulatory, with family. em 14:41 Condition: good 14:41 Discharge instructions given to patient, family, Instructed on discharge instructions, follow up and referral plans. medication usage, Demonstrated understanding of instructions, follow-up care, medications, Prescriptions given X 4. 14:42 Patient left the ED. em Signatures: Dispatcher [employer] Reina Stewart RN RN sv Munoz, Nikko, SOCIOLOGY PROFESSOR SOCIOLOGY PROFESSOR em Murali Hodges MD MD rn Calderon, Audri, RN RN aa5 Orion Ravi NP OUTSIDE DELIVERER pm1 Evelyn Echols ag5 Corrections: (The following items were deleted from the chart) 17:20 12:45 GI: Abdomen is flat, Patient currently denies nausea, vomiting, em aa5
[2019-02-04 14:56] VITALS: TEMP 97.8
[2019-02-04 14:57] VITALS: O2SAT 99
[2019-02-04 14:59] VITALS: BP 133/61
--- NOTE | 2019-02-04 15:30 | RAD REPORT ---
EXAM DESCRIPTION: Ro Single View02/04/2019 1:40 pm CLINICAL HISTORY: Chest pain COMPARISON: none FINDINGS: The lungs appear clear of acute infiltrate. The heart is normal size IMPRESSION: No acute abnormalities displayed
--- NOTE | 2019-02-05 19:55 | EKG ---
Test Date: 2019-02-04 Test Time: 12:49:44 Emulsion Operator: ASHLY MEASUREMENT RESULTS: Intervals: Rate: 81 NH: 198 QRSD: 86 QT: 352 QTc: 408 [place]: P: 72 NH: 198 QRS: 56 T: 67 INTERPRETIVE STATEMENTS: Normal sinus rhythm Normal ECG No previous ECG available for comparison Electronically Signed On 02-05-19 19:53:02 CDT by Ten Simmons
== END 2019-02-04 14:42 | disposition home or self-care (01) ==
LOC: ER 12:36
DX: J44.9 Chronic obstructive pulmonary disease, unspecified (principal)
CPT/HCPCS: 93005; 85025; 80048; 36415; 80320; 83735; 85610; 80076; 84484; 83880; 71045; 94640; 96375; 96374; 99285; J2405; J7512

== ENCOUNTER 2019-02-20 08:11 | Emergency (ER) | payer OTHER ==
[2019-02-20] MEDS ORDERED: MEPERIDINE HCL 50 MG/ML ONE ×2 (08:51→10:42)
[2019-02-20] MEDS ORDERED: METOCLOPRAMIDE 10 MG/2mL INJ ONE (08:51)
[2019-02-20] MEDS ORDERED: NA CHLORIDE 0.9% 1,000 ML ONE (08:51)
[2019-02-20 09:04] LABS: Absolute Lymphocytes (CBC) 1.5 K/uL (0.7-4.9); Basophils % 0.9 % (0-1.3); Hematocrit 44.1 % (39.6-49.0); Lymphocytes % 20.1 % (15.3-44.8); MPV 9.3 fL (7.6-11.3); RBC Red Blood Cell Count 4.72 M/uL (4.33-5.43)
[2019-02-20 09:09] LABS: Protime INR 1.03
--- NOTE | 2019-02-20 09:19 | RAD REPORT ---
EXAM DESCRIPTION: CT - Head Brain Wo Cont - 02/20/2019 9:04 am CLINICAL HISTORY: HEADACHE Headache, drowsiness COMPARISON: No comparisons TECHNIQUE: All CT scans are performed using dose optimization technique as appropriate and may inclu de automated exposure control or mA/KV adjustment according to patient size. FINDINGS: No intracranial hemorrhage, hydrocephalus or extra-axial fluid collection.No areas of brai n edema or evidence of midline shift. The paranasal sinuses and mastoids are clear. The calvarium is intact. IMPRESSION: No acute intracranial abnormality.
[2019-02-20 09:21] LABS: BUN Blood Urea Nitrogen 15 mg/dL (7-18); Bicarbonate 31 mmol/L (21-32); Glucose Level 134 mg/dL (74-106); Sodium Level 143 mmol/L (136-145)
--- NOTE | 2019-02-20 10:08 | RAD REPORT ---
EXAM DESCRIPTION: CT - Head angio - 02/20/2019 9:51 am CLINICAL HISTORY: HEADACHE Headache, drowsiness, TIA COMPARISON: Head Brain Wo Cont dated 02/20/2019 TECHNIQUE: CT angiography of the head was performed with MIPs. All CT scans are performed using dose optimization technique as appropriate and may include automated exposure control or mA/KV adjustment according to patient size. FINDINGS: No visible blood flow is seen in the intracranial left internal carotid artery compatible with occlusion. The [place] of [place] provides collateral flow from the right to the left A1 and M1 se gments. No aneurysm is seen. No vascular malformation. Antegrade flow seen in both vertebral arteries, slightly right-sided dominant. The visualized dural venous sinuses are patent. 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
--- NOTE | 2019-02-20 10:12 | RAD REPORT ---
EXAM DESCRIPTION: CT - Neck Angio - 02/20/2019 9:53 am CLINICAL HISTORY: headache, worst ever COMPARISON: Soft Tissue Neck W/Contr dated 08/20/2015 TECHNIQUE: CT angiography of the neck vessels was performed with MIPs. All CT scans are performed using dose optimization technique as appropriate and may include automated exposure control or mA/KV adjustment according to patient size. FINDINGS: There is complete occlusion of the left internal carotid artery seen at the level of the l eft carotid bulb, cause predominately by heavy soft plaque. The right carotid bulb demonstrates mild narrowing caused by hard plaque estimated at less than 50% based on NASCET criteria. Normal flow is seen within both vertebral arteries, slightly right-sided dominant. IMPRESSION: Complete occlusion of the left internal carotid artery is noted.
[2019-02-20] MEDS ORDERED: MEPERIDINE HCL 25 MG/0.5 ML ONE (10:41)
--- NOTE | 2019-02-20 10:50 | ER ---
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 Transition of care: patient was not received from another setting of care. Onset of symptoms was February 10, 2019. Risk Assessment: Do you want to hurt yourself or someone else? Patient reports no desire to harm self or others. Initial Sepsis Screen: Does the patient meet any 2 criteria? No. Patient's initial sepsis screen is negative. Does the patient have a suspected source of infection? No. Patient's initial sepsis screen is negative. Care prior to arrival: None. 08:26 Method Of Arrival: Ambulatory iw 08:26 Acuity: ALDEN 3 iw Triage Assessment: 09:03 Headache History: Denies prior headaches. General: Appears in no apparent distress. tw2 Pain: Pain currently is 10 out of 10 on a pain scale. Pain began 2-3 weeks Also complains of nausea. Historical: - Allergies: 08:29 No Known Allergies; iw - Home Meds: 08:29 alprazolam 1 mg Oral TbDL 1 tab 3 times per day [Active]; atorvastatin 40 mg Oral tab 1 iw tab nightly [Active]; ferrous sulfate 325 mg (65 mg iron) Oral TbEC [Active]; gemfibrozil 600 mg Oral tab 1 tab 2 times per day [Active]; losartan 50 mg Oral tab 1 tab once daily [Active]; omeprazole 40 mg Oral cpDR 1 cap once daily [Active]; - PMHx: 08:29 Anemia; Back pain; Hypertension; iw - PSHx: 08:29 Back; Neck; Carpal Tunnel Repair; Shoulder - Left; Appendectomy; iw - Immunization history:: Adult Immunizations up to date. - Social history:: Smoking status: Patient uses tobacco products, smokes one pack cigarettes per day. - Ebola Screening: : Patient negative for fever greater than or equal to 101.5 degrees Fahrenheit, and additional compatible Ebola Virus Disease symptoms Patient denies exposure to infectious person Patient denies travel to an Ebola-affected area in the 21 days before illness onset No symptoms or risks identified at this time. - Family history:: not pertinent. - Hospitalizations: : No recent hospitalization is reported. Screenin:40 Abuse screen: Denies threats or abuse. Nutritional screening: No deficits noted. tw2 Tuberculosis screening: No symptoms or risk factors identified. Fall Risk Secondary diagnosis (15 points) impaired mobility. Assessment: 08:48 General: Appears in no apparent distress. Behavior is calm, cooperative, appropriate tw2 for age. Pain: Complains of pain in top of head, left frontal area, left side of the back of head, right frontal area and right side of the back of head. Neuro: Level of Consciousness is awake, alert, obeys commands, Oriented to person, place, time, situation, Reports dizziness, headache. Cardiovascular: Heart tones S1 S2 Patient's skin is warm and dry. Respiratory: Airway is patent Respiratory effort is even, unlabored, Respiratory pattern is regular, symmetrical, Breath sounds are clear bilaterally. GI: Abdomen is round Bowel sounds present X 4 quads. : No signs and/or symptoms were reported regarding the genitourinary system. EENT: No signs and/or symptoms were reported regarding the EENT system. Derm: No signs and/or symptoms reported regarding the dermatologic system. Musculoskeletal: Range of motion: intact in all extremities. 09:23 Reassessment: Patient appears in no apparent distress at this time. Patient and/or tw2 family updated on plan of care and expected duration. Pain level reassessed. Patient is alert, oriented x 3, equal unlabored respirations, skin warm/dry/pink. Patient states feeling better. Patient states symptoms have improved. 10:17 Reassessment: Patient appears in no apparent distress at this time. No changes from tw2 previously documented assessment. Patient and/or family updated on plan of care and expected duration. Pain level reassessed. Patient is alert, oriented x 3, equal unlabored respirations, skin warm/dry/pink. 10:56 Reassessment: Patient appears in no apparent distress at this time. No changes from tw2 previously documented assessment. Patient and/or family updated on plan of care and expected duration. Pain level reassessed. Patient is alert, oriented x 3, equal unlabored respirations, skin warm/dry/pink. Patient states feeling better. Vital Signs: 08:29 BP 156 / 103; Pulse 90; Resp 16; Temp 98.4; Pulse Ox 98% on R/A; Weight 79.38 kg; iw Height 5 ft. 8 in. (172.72 cm); Pain 10/10; 09:23 BP 147 / 98; Pulse 72; Resp 17; Pulse Ox 97% ; Pain 6/10; tw2 10:18 BP 163 / 91; Pulse 70; Resp 17; Pulse Ox 98% on R/A; tw2 08:29 Body Mass Index 26.61 (79.38 kg, 172.72 cm) iw [place] Coma Score: 10:45 Eye Response: spontaneous(4). Verbal Response: oriented(5). Motor Response: obeys rn commands(6). Total: 15. ED Course: 08:13 Patient arrived in ED. ag5 08:28 Triage completed. iw 08:29 Arm band placed on. iw 08:40 Mariya Moreland, RN is Primary Nurse. tw2 08:40 Murali Hodges MD is Attending Physician. rn 08:40 Bed in low position. Call light in reach. tw2 08:48 Inserted saline lock: 20 gauge in right antecubital area, using aseptic technique. tw2 Blood collected. 09:00 EKG done, by ED staff, reviewed by Murali Hodges MD. jb1 09:07 CT Head Brain wo Cont In Process Unspecified. EDMS 09:[address] via wheelchair. sw 09:52 CT Head Angio In Process Unspecified. EDMS 09:52 CT Neck Angio In Process Unspecified. EDMS 09:54 CT completed. Patient tolerated procedure well. Patient moved back from CT. sw 10:56 No provider procedures requiring assistance completed. IV discontinued, intact, tw2 bleeding controlled, No redness/swelling at site. Pressure dressing applied. Administered Medications: 08:55 Drug: NS 0.9% 1000 ml Route: IV; Rate: 1000 ml; Site: right antecubital; tw2 10:44 Follow up: Response: No adverse reaction; IV Status: Completed infusion; IV Intake: tw2 1000ml 08:55 Drug: Reglan 10 mg Route: IVP; Site: right antecubital; tw2 09:23 Follow up: Response: No adverse reaction; Nausea is decreased tw2 08:58 Drug: Demerol 50 mg Route: IVP; Site: right antecubital; tw2 09:22 Follow up: Response: No adverse reaction; Pain is decreased; RASS: Alert and Calm (0) tw2 10:44 Drug: Demerol 50 mg {Note: RASS 0.} Route: IVP; Site: right antecubital; tw2 10:56 Follow up: Response: No adverse reaction; Pain is decreased; RASS: Alert and Calm (0) tw2 Intake: 10:44 IV: 1000ml; Total: 1000ml. tw2 Outcome: 10:49 Discharge ordered by . rn 10:56 Discharged to home ambulatory. tw2 10:56 Condition: stable 10:56 Discharge instructions given to patient, Instructed on discharge instructions, follow up and referral plans. no drinking with medication, no driving heavy equipment, medication usage, Demonstrated understanding of instructions, follow-up care, medications, Prescriptions given X 1. 10:56 Patient left the ED. tw2 Signatures: Dispatcher [employer] Harinder Feliciano jb1 Radha Hall, RN RHEA iw Murali Hodges MD MD rn Warren, Shannon sw Wise, Tara, RN RN tw2 Evelyn Echols ag5
--- NOTE | 2019-02-20 10:51 | EDPHYS ---
Physician Documentation [facility] Name: Helder Zambrano Age: 63 yrs Sex: Male : 1955 Arrival Date: 02/20/2019 Time: 08:13 Bed 2 Private MD: ED Physician Murali Hodges HPI: 02/20 09:51 This 63 yrs old Male presents to ER via Ambulatory with complaints of rn Headache > 24hrs Old. 09:51 The patient complains of pain to the top of head. The patient describes the headache as rn aching, throbbing. Onset: The symptoms/episode began/occurred 2 week(s) ago. Associated signs and symptoms: Pertinent positives: nausea, Vertigo Pertinent negatives: altered mental status, dizziness, fever, malaise, neck stiffness, paresthesias, Photophobia rash, sinus congestion, sinus tenderness, vision changes, vision loss, weakness. Severity of symptoms: At its worst the pain was severe. The symptoms are alleviated by nothing. the symptoms are aggravated by nothing. The patient has not experienced similar symptoms in the past. reports 2-3 weeks of headache, top of head, has never had a headache this bad or last this long, reports saw PCP recently, prescribed migraine medication, told to come to ER if does not help. Reports nothing helping. Reports intermittent dizziness with nausea, lasts for a few seconds, but otherwise no focal neuro complaints. No change in vision or speech. No head injury. . Historical: - Allergies: 08:29 No Known Allergies; iw - Home Meds: 08:29 alprazolam 1 mg Oral TbDL 1 tab 3 times per day [Active]; atorvastatin 40 mg Oral tab 1 iw tab nightly [Active]; ferrous sulfate 325 mg (65 mg iron) Oral TbEC [Active]; gemfibrozil 600 mg Oral tab 1 tab 2 times per day [Active]; losartan 50 mg Oral tab 1 tab once daily [Active]; omeprazole 40 mg Oral cpDR 1 cap once daily [Active]; - PMHx: 08:29 Anemia; Back pain; Hypertension; iw - PSHx: 08:29 Back; Neck; Carpal Tunnel Repair; Shoulder - Left; Appendectomy; iw - Immunization history:: Adult Immunizations up to date. - Social history:: Smoking status: Patient uses tobacco products, smokes one pack cigarettes per day. - Ebola Screening: : Patient negative for fever greater than or equal to 101.5 degrees Fahrenheit, and additional compatible Ebola Virus Disease symptoms Patient denies exposure to infectious person Patient denies travel to an Ebola-affected area in the 21 days before illness onset No symptoms or risks identified at this time. - Family history:: not pertinent. - Hospitalizations: : No recent hospitalization is reported. ROS: 09:51 Constitutional: Negative for fever, chills, and weight loss, Eyes: Negative for injury, rn pain, redness, and discharge, Neck: Negative for injury, pain, and swelling, Cardiovascular: Negative for chest pain, palpitations, and edema, Respiratory: Negative for shortness of breath, cough, wheezing, and pleuritic chest pain, Abdomen/GI: Negative for abdominal pain, diarrhea, and constipation, MS/Extremity: Negative for injury and deformity, Skin: Negative for injury, rash, and discoloration, Neuro: Negative for weakness, numbness, tingling, and seizure. Exam: 08:58 ECG was reviewed by the Attending Physician. rn 09:51 Constitutional: This is a well developed, well nourished patient who is awake, alert, rn and in no acute distress. Walked to room without difficulty or assistance. Head/Face: Normocephalic, atraumatic. Eyes: Pupils equal round and reactive to light, extra-ocular motions intact. Lids and lashes normal. Conjunctiva and sclera are non-icteric and not injected. Cornea within normal limits. Periorbital areas with no swelling, redness, or edema. ENT: MMM Neck: Trachea midline, no thyromegaly or masses palpated, and no cervical lymphadenopathy. Supple, full range of motion without nuchal rigidity, or vertebral point tenderness. No Meningismus. Cardiovascular: Regular rate and rhythm. No pulse deficits. Respiratory: No increased work of breathing, no retractions or nasal flaring. Abdomen/GI: soft, non-tender MS/ Extremity: Pulses equal, no cyanosis. Neurovascular intact. Full, normal range of motion. Equal circumference. Neuro: Awake and alert, GCS 15, oriented to person, place, time, and situation. Cranial nerves II-XII grossly intact. Motor strength 5/5 in all extremities. Sensory grossly intact. Cerebellar exam normal. Normal gait. Vital Signs: 08:29 BP 156 / 103; Pulse 90; Resp 16; Temp 98.4; Pulse Ox 98% on R/A; Weight 79.38 kg; iw Height 5 ft. 8 in. (172.72 cm); Pain 10/10; 09:23 BP 147 / 98; Pulse 72; Resp 17; Pulse Ox 97% ; Pain 6/10; tw2 10:18 BP 163 / 91; Pulse 70; Resp 17; Pulse Ox 98% on R/A; tw2 08:29 Body Mass Index 26.61 (79.38 kg, 172.72 cm) iw [place] Coma Score: 10:45 Eye Response: spontaneous(4). Verbal Response: oriented(5). Motor Response: obeys rn commands(6). Total: 15. MDM: 08:40 Patient medically screened. rn 10:45 Differential diagnosis: hypertensive headache, intracerebral hemorrhage, migraine, rn tension headache, vasomotor headache. Data reviewed: vital signs, nurses notes, lab test result(s), EKG, radiologic studies, CT scan, and as a result, I will discharge patient. Counseling: I had a detailed discussion with the patient and/or guardian regarding: the historical points, exam findings, and any diagnostic results supporting the discharge/admit diagnosis, lab results, radiology results, the need for outpatient follow up, to return to the emergency department if symptoms worsen or persist or if there are any questions or concerns that arise at home. Response to treatment: the patient's symptoms have markedly improved after treatment, and as a result, I will discharge patient. Special discussion: I discussed with the patient/guardian in detail that at this point there is no indication for admission to the hospital. It is understood, however, that if the symptoms persist or worsen the patient needs to return immediately for re-evaluation. Based on the history and exam findings, there is no indication for further emergent testing or inpatient evaluation. vascular surgery. ED course: No acute findings on ct head or ct angio head/neck. + chronic occlusion of left ICA evident by collateral circulation from [place]. This likely has been going on for years, and no acute neuro complaints. Reports intermittent syncopal episodes when standing in past, not worsening or more frequent. Recommend vascular surgery f/u. . 02/20 08:48 Order name: CLARISA with Diff; Complete Time: 09:27 rn 02/20 08:48 Order name: Basic Metabolic Panel; Complete Time: 09:27 rn 02/20 08:48 Order name: CT Head Brain wo Cont; Complete Time: 10: rn 02/20 08:48 Order name: Protime (+inr); Complete Time: 09:27 rn 02/20 08:48 Order name: Ptt, Activated; Complete Time: 09:27 rn 02/20 09:28 Order name: CT Head Angio; Complete Time: 10: rn 02/20 08:48 Order name: IV Start; Complete Time: 08:48 rn 02/20 08:48 Order name: EKG; Complete Time: 08:48 rn 02/20 08:48 Order name: EKG - Nurse/Tech; Complete Time: 08:59 rn 02/20 09:28 Order name: CT Neck Angio; Complete Time: 10:22 rn EC:58 Rate is 80 beats/min. Rhythm is regular. QRS [place] is Normal. AL interval is normal. QRS rn interval is normal. QT interval is normal. No Q waves. T waves are Normal. No ST changes noted. Clinical impression: Normal ECG. Interpreted by me. Reviewed by me. Administered Medications: 08:55 Drug: NS 0.9% 1000 ml Route: IV; Rate: 1000 ml; Site: right antecubital; tw2 10:44 Follow up: Response: No adverse reaction; IV Status: Completed infusion; IV Intake: tw2 1000ml 08:55 Drug: Reglan 10 mg Route: IVP; Site: right antecubital; tw2 09:23 Follow up: Response: No adverse reaction; Nausea is decreased tw2 08:58 Drug: Demerol 50 mg Route: IVP; Site: right antecubital; tw2 09:22 Follow up: Response: No adverse reaction; Pain is decreased; RASS: Alert and Calm (0) tw2 10:44 Drug: Demerol 50 mg {Note: RASS 0.} Route: IVP; Site: right antecubital; tw2 10:56 Follow up: Response: No adverse reaction; Pain is decreased; RASS: Alert and Calm (0) tw2 Disposition: 02/20/19 10:49 Discharged to Home. 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 - Condition is Stable. - Discharge Instructions: General Headache Without Cause, Hypertension. - Prescriptions for Tylenol- Codeine #3 300-30 mg Oral Tablet - take 1 tablet by ORAL route every 6 hours As needed; 20 tablet. - Medication Reconciliation Form, Thank You Letter, Antibiotic Education, Prescription Opioid Use form. - Follow up: Private Physician; When: As needed; Reason: Recheck today's complaints, Re-evaluation by your physician. - Problem is an ongoing problem. - Symptoms have improved. Signatures: Dispatcher [employer] EDRadha Reyes RN RN iw Nieto, Roman, MD MD rn Wise, Tara, RN RN tw2 Corrections: (The following items were deleted from the chart) 10:56 10:49 02/20/2019 10:49 Discharged to Home. Impression: Headache; Chronic occlusion of tw2 left internal carotid artery. Condition is Stable. Forms are Medication Reconciliation Form, Thank You Letter, Antibiotic Education, Prescription Opioid Use. Follow up: Private Physician; When: As needed; Reason: Recheck today's complaints, Re-evaluation by your physician. Problem is an ongoing problem. Symptoms have improved. rn
--- NOTE | 2019-02-20 10:58 | EKG ---
Test Date: 2019-02-20 Test Time: 08:56:56 Hog Buyer: NICO MEASUREMENT RESULTS: Intervals: Rate: 80 ND: 192 QRSD: 84 QT: 352 QTc: 405 [place]: P: 70 ND: 192 QRS: 59 T: 70 INTERPRETIVE STATEMENTS: Normal sinus rhythm Normal ECG Compared to ECG 02/04/2019 12:49:44 No significant changes Electronically Signed On 02-20-19 10:57:24 TAILING MACHINE OPERATOR by Lennox Palma
[2019-02-20 11:05] VITALS: TEMP 98.4
[2019-02-20 11:14] VITALS: BP 163/91; O2SAT 98
== END 2019-02-20 10:56 | disposition home or self-care (01) ==
LOC: ER 08:11
DX: I65.22 Occlusion and stenosis of left carotid artery (principal); I10 Essential (primary) hypertension; F17.210 Nicotine dependence, cigarettes, uncomplicated
CPT/HCPCS: 96361; 93005; 85025; 80048; 36415; 85610; 85730; 70450; 70496; 70498; 96375; 96374; 99284; Q9967; J2765; J2175 ×2; J7030